=== PATIENT | male | born 1950 | race Caucasian/White ===

== ENCOUNTER 2016-05-24 12:08 | Emergency (ER) | payer OTHER ==
--- NOTE | 2016-05-27 13:18 | ER ---
ADMIT: 05/24/2016 RM/LOC: ER [facility] MR#: [id number] [address] [address] JANEL WILL [address] [place] [address] Emergency Room Report SEX: M AGE: 66 : 1950 DATE: 05/24/2016 TIME: 1208 hours. Please refer to my T-sheet for complete H and P. HISTORY OF PRESENT ILLNESS: Briefly, the patient is a 66-year-old, who comes in with vision changes of right eye, feels like there were flashes and like a curtain went across from the right to the left. He did not lose complete vision but it is decreased. He has trouble seen, specific things cannot focus. It came on all of a sudden last night. He has not been seen. He has very good ocular health in the past. He just wears glasses and sees his eye doctor, [facility] PHYSICAL EXAMINATION: VITAL SIGNS: His blood pressure 166/99, pulse 64, respirations 12, temp 97.8, sat 97%. GENERAL: No acute distress. HEENT: Pupils are equal, round, and reactive to light. Extraocular muscles intact. His right, I do see a little bit haziness in the posterior exam, although I did not dilate him up. Visual acuity were checked. He seems to be a little bit worse centrally. He is 20/70 in his right eye and 20/40 in his left eye. I talked to Dr. Casey on the phone, she was willing to come into our clinic and meet him with her higher level equipment there. The patient was comfortable, had a ride, was ready for discharge to go and meet Dr. Casey in her office. ASSESSMENT: 1. Right eye visual acuity. 2. Symptoms consistent with retinal detachment. PLAN: To Dr. Casey's office for further evaluation. Damian Angeles MD/ maxine JOB #: [id number] CC: Damian Angeles MD, Attending Physician [facility] Physician, Family Physician
[2016-08-12] MEDS ORDERED: ZYRTEC DPS10 MG PO (14:26)
[2016-08-12] MEDS ORDERED: DIAMOX DPS250 MG PO (14:26)
[2016-08-12] MEDS ORDERED: LOTRIMIN 1% DPS30 ML TP (14:27)
[2016-08-12] MEDS ORDERED: COSOPT PLUS DPS10 ML OD (14:27)
[2016-08-12] MEDS ORDERED: LOPRESSOR DPS50 MG PO (14:28)
[2016-08-12] MEDS ORDERED: TRIAMTERENE-HC1 EACH PO (14:28)
[2016-08-12] MEDS ORDERED: FLONASE 0.05% D16 GM NS (14:28)
[2016-08-12] MEDS ORDERED: ASPIRIN EC81 MG PO (14:29)
[2016-08-12] MEDS ORDERED: PRED FORTE 1% DP5 ML OD (14:30)
[2016-08-12] MEDS ORDERED: VIGAMOX3 ML OD (14:31)
[2016-08-12] MEDS ORDERED: CARDIZEM CD DP120 MG PO (14:31)
== END 2016-05-24 12:59 | disposition home or self-care (01) ==
LOC: ER 12:08
DX: H33.21 Serous retinal detachment, right eye (principal); I10 Essential (primary) hypertension; Z79.899 Other long term (current) drug therapy

== ENCOUNTER 2016-08-10 22:32 | Inpatient (IN) | payer OTHER ==
[~2016-08-10] VITALS: Ht 180.3 cm; Wt 112.8 kg
--- NOTE | ~2016-08-10 | ECH ---
Transthoracic Echocardiography Report (TTE) Demographics Patient Name JANEL WILL Date of Study 08/11/2016 Patient Number [id number] Visit Number [id number] Date of 1950 Room Number 422 Accession Number [id number] Gender Male Age 66 year(s) Referring Garry Foley Lockstitch Waistline Joiner Leela Olson MD [facility] Garry Roberts MD Physician Interpreting Garry Roberts Oracle Technical Developer Physician Supervising Ordering Physician Opal BARR MD/MLP Nurse Stress Sas Etl Developer Conclusions Summary Technically good exam. The estimated left ventricular ejection fraction is 60-65%. No significant valvular abnormalities. Procedure Type of Study TTE procedure:Echo Complete SF. Procedure Date Date: 08/11/2016 Start: 11:45 AM Technical Quality: Good visualization Indications:Paroxysmal a-fib and Hypertension. Appropriate Use Criteria: 9 Height: 71 inches Weight: 248 pounds BSA: 2.31 m Rhythm: NSR HR: 65 bpm BP: 140/84 mmHg M-Mode/2D Measurements LV Diastolic Dimension: 5.42 cm LV Systolic Dimension: 3.35 cm LV Septum Diastolic: 0.98 cm LV PW Diastolic: 1.01 cm AO Root Dimension: 3.59 cm Cardiac Output: 6.32 l/min LA Dimension: 3.83 cm Cardiac Index: 2.74 l/min*m RV Diastolic Dimension: 3.08 cm LA volume index: 31 ml/m LVOT: 2.03 cm LVOT VTI: 30.08 cm RV Base: 4 cm LV Stroke volume: 97.31 ml RV Mid: 2.9 cm LV Stroke volume index: 42.13 ml/m TAPSE: 2.6 cm TDI-S': 13 cm/s Doppler Measurements AV Peak Velocity: 1.2 m/s MV Peak E-Wave: 0.68 m/s AV Peak Gradient: 5.76 mmHg MV Peak A-Wave: 0.59 m/s AV Mean Gradient: 4 mmHg MV E/A Ratio: 1.17 LVOT Peak Velocity: 1.18 m/s MV P1/2t: 55.3 msec AV Area (Continuity):3.22 cm MV Deceleration Time: 186.5 msec TR Velocity:2.14 m/s MV Area (PHT): 3.98 cm TR Gradient:18.32 mmHg PV Peak Velocity: 1.06 m/s Estimated RAP:3 mmHg PV Peak Gradient: 4.5 mmHg Estimated RVSP: 21 mmHg Estimated PASP: 21.32 mmHg E' Septal Velocity: 0.06 m/s A' Septal Velocity: 0.11 m/s E' Lateral Velocity: 0.08 m/s A' Lateral Velocity: 0.12 m/s RA Area: 15.35 cm Findings Left Ventricle Normal left ventricle size and function. Diastolic assessment reveals normal relaxation. Right Ventricle Normal right ventricle structure and function. Left Atrium Normal left atrial size. Right Atrium Normal right atrial size. Mitral Valve Mild mitral annular calcification. Trivial mitral regurgitation by color Doppler. Aortic Valve Normal aortic valve structure and function. Tricuspid Valve Normal tricuspid valve structure and function. Trivial tricuspid regurgitation by color Doppler. Normal pulmonary pressures. Pulmonic Valve Normal pulmonic valve structure and function. Pericardial Effusion No evidence of pericardial effusion. Miscellaneous Visualized portions of the aortic root and ascending aorta appear normal in size. Pleural Effusion No evidence of pleural effusion. Signature
--- NOTE | ~2016-08-10 | FD ---
ADMIT: 08/11/2016 RM/LOC: 422 [facility] MR#: [id number] [address] [facility] [address] [place], [place] [address] JANEL WILL [address] [place] [address] Final Diagnosis SEX: M AGE: 66 : 1950 ADMISSION DATE: 08/11/2016 DISCHARGE DATE: 08/11/2016 FINAL DIAGNOSES: 1. New onset paroxysmal atrial fibrillation with rapid ventricular response -symptomatic. 2. History of systemic hypertension. 3. Recent retinal detachment - approximately 3 weeks post surgical repair at [facility]. 4. Degenerative joint disease. 5. Known glaucoma. 6. Allergic rhinitis. 7. Status post multiple operations. Devang Castañeda MD/ xochiltl JOB #: [id number] CC: Devang Castañeda MD, Attending Physician [facility] Physician, Family Physician . [facility]
--- NOTE | 2016-08-11 06:32 | ER ---
ADMIT: 08/11/2016 RM/LOC: 422 [facility] MR#: [id number] [address] [address] JANEL WILL [address] [place] [address] Emergency Room Report SEX: M AGE: 66 : 1950 DATE: 08/10/2016 CHIEF COMPLAINT/HISTORY OF PRESENT ILLNESS: The patient is a 66-year-old male, [facility], who was at [employer] out of town sitting in the sun, noted palpitations. No shortness of breath, chest pain, or altered level of consciousness. Drove himself to the Emergency Department for evaluation. PAST MEDICAL HISTORY: ILLNESSES: Retinal detachment, status post recent buckling on July 15 in [place]; hypertension; degenerative joint disease; glaucoma; seasonal allergic rhinitis. OPERATIONS: Bilateral rotator cuff with revisions, 3 inguinal hernia repairs, laser retinal detachment and recent buccal repair of right eye, cervical fusion, left knee meniscectomy. ALLERGIES: NIACIN, MORPHINE. MEDICATIONS: Please see nurse's MAR. SOCIAL HISTORY: Single, retired. Nonsmoker, nondrinker, no illicit drugs. FAMILY HISTORY: Negative per chart review. REVIEW OF SYSTEMS: A 12-point review of systems negative for all other systems, illnesses, or operations except as outlined above. PHYSICAL EXAMINATION: VITAL SIGNS: Temperature 97, pulse 75, respirations 18, BP 143/97, SaO2 of 99% on room air. Weight 113 kilos. GENERAL: Nontoxic, non-diaphoretic without jaundice or icterus. HEENT: Normocephalic. No evidence of epistaxis, rhinorrhea, or otorrhea. NECK: Supple without lymphadenopathy or thyromegaly. CHEST: Clear. Breath sounds equal. HEART: Tachycardic, irregular rate and rhythm without murmur, gallop, or edema. ABDOMEN: Soft, nontender, nondistended without mass or megaly. Bowel sounds hypoactive. EXTREMITIES: No evidence of Homans sign, synovitis, or dermatitis. NEURO: Postoperative changes noted in right eye. Visual acuity not tested. No light perception and fingers were noted in right eye. No focal deficit otherwise noted. MEDICAL DECISION MAKING: EKG shows atrial fibrillation with rapid ventricular response. Chest x-ray, no acute findings. Normal CBC, CMP, BMP, lactic acid, troponin, and D-dimer. TSH and free T4, all within normal limits. The patient was given digoxin 0.5 mg IV push, with intermittent sinus rhythm and then paroxysmal atrial fibrillation with rapid response, treated then with Cardizem 25 mg bolus, then 10 mg/hour drip with slowing and intermittent conversion. Due to the patient's recent scleral buckling, not a good candidate for anticoagulation. Notified Dr. Devang Castañeda, who agreed and gave orders to ADMIT: 08/11/2016 RM/LOC: 422 [facility] MR#: [id number] [address] [place] [id number] JANEL WILL [address] [place] [address] Emergency Room Report SEX: M AGE: 66 : 1950 nursing staff. Diversion from [facility] due to titrating Cardizem and no ICU beds. Due to the patient's presentation, findings, and intervention, 60 minutes of critical care is warranted. DIAGNOSES: 1. Paroxysmal atrial fibrillation with rapid ventricular response. 2. Recent right retinal detachment and buckling. RECOMMENDATION: Admit inpatient PCU for Dr. Devang Castañeda. ADMISSION/DISCHARGE CONDITION: Stable. CODE STATUS: The patient is a full code. Zoran Nelson MD/ maxine JOB #: [id number] CC: Devang Castañeda MD, Attending Physician . [facility] Physician . [facility]
[2016-08-12] MEDS ORDERED: DIAMOX DPS250 MG PO (14:26)
[2016-08-12] MEDS ORDERED: ZYRTEC DPS10 MG PO (14:26)
[2016-08-12] MEDS ORDERED: LOTRIMIN 1% DPS30 ML TP (14:27)
[2016-08-12] MEDS ORDERED: COSOPT PLUS DPS10 ML OD (14:27)
[2016-08-12] MEDS ORDERED: FLONASE 0.05% D16 GM NS (14:28)
[2016-08-12] MEDS ORDERED: LOPRESSOR DPS50 MG PO (14:28)
[2016-08-12] MEDS ORDERED: TRIAMTERENE-HC1 EACH PO (14:28)
[2016-08-12] MEDS ORDERED: ASPIRIN EC81 MG PO (14:29)
[2016-08-12] MEDS ORDERED: PRED FORTE 1% DP5 ML OD (14:30)
[2016-08-12] MEDS ORDERED: CARDIZEM CD DP120 MG PO (14:31)
[2016-08-12] MEDS ORDERED: VIGAMOX3 ML OD (14:31)
--- NOTE | 2016-08-14 07:47 | HP ---
ADMIT: 08/11/2016 RM/LOC: 422 [facility] MR#: [id number] [address] [facility] [address] [place], [place] [address] JANEL WILL [address] [place] [address] History and Physical SEX: M AGE: 66 : 1950 DATE OF SERVICE: CHIEF COMPLAINT: Palpitations starting last night watching a ball game. HISTORY OF PRESENT ILLNESS: Mr. 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 While sitting in the sun, "I think I got overheated" and he had the onset of a rapid irregular heart rate without any other apparent symptoms- specifically no chest pain, nausea, diaphoresis, or headache etc. This persisted and he was driving home to [place] when he decided to stop in the emergency room rather than going to the [place] this morning. In the emergency room, he was noted to be in atrial fibrillation with rapid ventricular response and was treated with IV digoxin and IV Cardizem and converted about 0.5 hour later. His general lab workup was within normal limits and including thyroid function studies and he was admitted OPO for observation. He has had a quiet night. He states he feels fine and has apparently remained in sinus rhythm. Although no strips are currently on the chart. PAST MEDICAL HISTORY: Positive for a retinal detachment, which was repaired surgically at [facility] by the [place] manufacturing engineer chief about 3 to 4 weeks ago-right eye. This was done on July 15. He has a history of systemic hypertension, degenerative joint disease, glaucoma, and allergic rhinitis. PREVIOUS SURGICAL HISTORY: Includes bilateral rotator cuff with revisions, three inguinal hernia repairs, laser retinal detachment/marked buccal repair of the right eye and cervical spine fusion and left knee meniscectomy. ALLERGIES: NIACIN AND MORPHINE. CURRENT MEDICATIONS: Unknown as he does not have a list with him and cannot recall it. SOCIAL HISTORY: Reveals that he is single, lives independently. He is a nonsmoker and does not use alcohol. Denies illicit drug use. FAMILY HISTORY: Negative. REVIEW OF SYSTEMS: Times 10 points is otherwise negative. He states "I am in good health, but I need to lose 70 pounds." PHYSICAL EXAMINATION: GENERAL: He is alert, talkative, in good humor, no apparent distress. VITAL SIGNS: His pulse has been in the 50s and 60s through the night. Blood pressures in the 140 systolic range. He is afebrile. HEENT: Essentially negative. NECK: Reasonably supple. I detect no obvious bruits. LUNGS: Sound clear to auscultation. CARDIAC EXAM: Shows regular rhythm without apparent murmur. ABDOMEN: Obese. He has a diastasis recti. No masses, tenderness, or ADMIT: 08/11/2016 RM/LOC: 422 [facility] MR#: [id number] [facility] [address] [address] JANEL WILL [address] [place], [place] [id number] History and Physical SEX: M AGE: 66 : 1950 organomegaly. Lower extremities show obvious arthritic changes of his knees and feet. He has no edema and palpable pulses in his feet. NEUROLOGIC: Essentially normal without focal defects. IMPRESSION: 1. Possible paroxysmal atrial fibrillation with RVR-prolonged episode last night. 2. Approximately three weeks post right retinal detachment with surgical repair. 3. History of systemic hypertension. 4. Degenerative joint disease. 5. Known glaucoma. 6. Status post multiple operations. PLAN: He has been admitted OPO for observation. We will seek Cardiology consult here locally. I anticipate he will be able to go home-probably on oral Cardizem, but we have to get his [facility] med list first. [facility] will [facility]. Devang Castañeda MD/ maxine JOB #: [id number] CC: Devang Castañeda, Attending Physician [facility] Physician, Family Physician
--- NOTE | 2016-09-10 15:00 | CO ---
ADMIT: 08/11/2016 RM/LOC: 422 [facility] MR#: [id number] [address] [address] JANEL WILL [address] [facility] [place] [address] Consultation SEX: M AGE: 66 : 1950 DATE OF CONSULTATION: 08/11/2016 ATTENDING PHYSICIAN: Devang Castañeda CONSULTING PHYSICIAN: Edmar Castañeda MD REASON FOR CONSULTATION: Atrial fibrillation with rapid ventricular response. HISTORY OF PRESENT ILLNESS: The patient is a pleasant 66-year-old male with no known history of coronary artery disease. He normally follows through the [facility]. He states he had a stress test may be about 10 years ago. He has been noticing off and on for the last couple of weeks, when he gets overheated, he has some palpitations. This feels like his heart is racing. We cools down, these go away on its own. Last night, he was at softball game to watch his daughter and he had palpitations, however when he cooled down, the palpitations did not improve and therefore he stopped on his way home to [facility]night at the [facility] emergency room. He was found to be in atrial fibrillation with rapid ventricular response. He converted after IV Cardizem drip and digoxin. He states that he has not had any chest pain, tightness, or heaviness. He denies any shortness of breath with exertion. He denies any swelling of his ankles or legs, orthopnea, proximal nocturnal dyspnea, or passing out. SOCIAL HISTORY: He has history of chewing, quit 26 years ago. He has been trying to lose weight. Would like to lose about 70 pounds. He uses 2 to 3 cups of coffee for caffeine a day, but he is trying to cut this out. He does not use any alcohol. Does not have a history of drug use or abuse. He is and is retired. PAST SURGICAL HISTORY: Bilateral shoulders, hernia, left knee, neck, and two recent retinal surgeries, one within the last 30 days. FAMILY HISTORY: Positive for stroke in his dad. Negative for heart disease, diabetes, or cancer. PAST MEDICAL HISTORY: Hypertension, retinal detachment, cataracts, obstructive sleep apnea, does not tolerate a CPAP, and osteoarthritis. REVIEW OF SYSTEMS: GENERAL: Denies fatigue, fever, chills, sweats, rash, or weight loss. EYES: Has blurry vision because of his recent retinal detachment and wears corrective lenses for driving. He has a history of cataracts. ENT: Denies hearing loss or problems with nose, mouth or throat. PULMONARY: History of obstructive sleep apnea, but he does not tolerate a CPAP. GASTROINTESTINAL: Denies heartburn or difficulty swallowing. No change in bowel habits. Denies dark or bloody stools. No history of ulcers, hiatal hernia, or gallbladder or liver disease. He has had a weight loss of about 12 pounds and would like to lose more. ADMIT: 08/11/2016 RM/LOC: 422 [facility] MR#: [id number] [address] [place] [id number] JANEL WILL [address] [place] [id number] Consultation SEX: M AGE: 66 : 1950 GENITOURINARY: Denies dysuria, hematuria, nocturia, urinary tract infection, or kidney stones. Denies history of renal insufficiency or failure. MUSCULOSKELETAL: He has arthritis and muscle and joint aches and pains. ENDOCRINE: Denies history of thyroid dysfunction or diabetes. HEMATOLOGIC: Denies history of anemia, easy bruising, or cancer. NEUROLOGIC: Denies chronic headaches, dizziness, syncope, stroke, seizures or numbness or tingling. PSYCHIATRIC: Denies history of mental illness or feelings of depression. DIAGNOSTICS: Chest x-ray is negative portable chest. Cardiac enzymes have been negative. Sodium of 142, potassium 3.8, with a chloride of 109, carbon dioxide 25, BUN of 20, glucose 96, creatinine 1.1, AST of 15, ALT of 27, GFR of 71, troponin 0.023, ProBNP of 192, free T4 1.11, TSH of 1.870. CRP of less than 0.29. Lactic acid is 0.7. INR is 1.13. D-dimer 0.24, white blood count of 7.5 with red blood count 5.03, hemoglobin 16.2, hematocrit 45.5 with a platelet count of 210. PHYSICAL EXAMINATION: Per Dr. Castañeda: VITAL SIGNS: Temp 96.2, pulse is 62, respirations 16, blood pressure 140/84, and O2 saturation 95%. SKIN: [place], warm and dry. EYES: Sclerae clear. No xanthelasmas. ENT: Oral mucosa is pink and moist. No jugular venous distention or carotid bruits. CHEST: Respirations are even and unlabored. Lungs are clear to auscultation. HEART: Regular rate and rhythm. Normal S1, S2. No murmurs, rubs or gallops. ABDOMEN: Soft and nontender. MUSCULOSKELETAL: Gait is normal. EXTREMITIES: Peripheral pulses palpable. No clubbing, cyanosis or edema. PSYCHIATRIC: Alert and oriented. Mood and affect are appropriate. ASSESSMENT: Per Dr. Castañeda: 1. Newly diagnosed paroxysmal atrial fibrillation, symptomatic. 2. Hypertension. 3. Sleep apnea. 4. Recent retinal detachment. ADMIT: 08/11/2016 RM/LOC: 422 [facility] MR#: [id number] [address] [address] JANEL WILL [address] [place] [address] Consultation SEX: M AGE: 66 : 1950 PLAN: Per Dr. Castañeda. I suspect his hypertension and sleep apnea are underlying contributing factors to his newly diagnosed atrial fibrillation. He does not tolerate a CPAP. We will add Cardizem and continue his home dose metoprolol. If he has refractory atrial fibrillation, he may need an antiarrhythmic. We will do an echocardiogram to assess for left ventricular function and to assess for any valvular abnormalities. I would recommend an outpatient stress test in order to assess for any areas of ischemia. We will not add any anticoagulation for now due to his recent retinal detachment. We will continue to monitor symptoms and diagnostics amend our plan accordingly. Thank you for allowing us to participate in the care of this patient. KAYLEE Augustine / Edmar Castañeda MD / maxine JOB #: [id number] CC: Devang Castañeda, Attending Physician [facility] Physician, Family Physician
== END 2016-08-11 16:25 | disposition home or self-care (01) | DRG 310 ==
LOC: ER 22:32 → 4PCU 08-11 00:53
PROVIDERS: ADMIT Family Medicine
DX: I48.0 Paroxysmal atrial fibrillation (principal); I10 Essential (primary) hypertension; M19.90 Unspecified osteoarthritis, unspecified site; H40.9 Unspecified glaucoma; G47.33 Obstructive sleep apnea (adult) (pediatric); J30.9 Allergic rhinitis, unspecified; Z98.1 Arthrodesis status; Z87.891 Personal history of nicotine dependence